=== PATIENT | male | born 1955 | race Caucasian/White ===

== ENCOUNTER 2022-09-03 07:47 | Day surgery (SDC) | payer MEDICARE, OTHER ==
[~2022-09-03] VITALS: Ht 177.8 cm; Wt 96.8 kg
[~2022-09-03 07:47] MED LIST: ACTOS45 MG PO; FLUTICASONE-SA1 EAC3 INH; METFORMIN HCL1000 MG PO; MILK THISTLE500 MG PO; MULTI VITAMIN1 EACH PO; TURMERIC500 M3 PO
--- NOTE | 2022-09-03 09:45 | NUR ---
09/03/22 0945 Kenia Alfredo PT TO PACU SLEEPY BUT WAKES TO VERBAL STIMULI.
--- NOTE | 2022-09-03 11:03 | OR ---
[facility] [address], [place] [address] Signed DATE OF OPERATION: 09/03/2022 SURGEON: Mike Catalan MD PREOPERATIVE DIAGNOSIS: Screening. POSTOPERATIVE DIAGNOSES: 1. 4 mm polyp at 15 cm (rectum). 2. 4 mm polyp in cecum opposite ileocecal valve. 3. 4 mm polyp at 4 cm. 4. Minimal internal hemorrhoids. PROCEDURE: Colonoscopy with hot biopsy. ESTIMATED BLOOD LOSS: None. INDICATIONS: Sierra is a 67-year-old diabetic gentleman, asked to see me for followup colonoscopy. He underwent a screening colonoscopy at age 56 back in 2010 while living in the with [facility]. He remembers upper endoscopy at the same time. He said both were negative. He was told to follow up in 10 years. He has no family history of colon cancer or polyps. He has no lower GI complaints. I had met with Sierra in the office and gave him a pamphlet on colonoscopy. We had reviewed that together in detail. He understands there is risk including, but not limited to gas bloating, crampy abdominal pain, bleeding, perforation requiring surgery, and missed diagnosis. We also reviewed the need for IV conscious sedation. He had expressed understanding and wished to proceed. DESCRIPTION OF PROCEDURE: Sierra was taken into our endoscopy suite and placed in the left lateral decubitus position. He was given a total of 4.5 mg of Versed and 150 mcg of fentanyl to cover the case. A digital rectal exam was performed. No external hemorrhoids. He had good sphincter tone. He has expected induration and swelling to the prostate gland consistent with his age. The adult colonoscope had been introduced and advanced under direct visualization of the camera. It took a little extra sedation in order to get the scope up into the cecum itself. His prep was good. We could easily see the appendiceal orifice and the ileocecal valve. The above-mentioned polyps were easily removed with Electronically Signed By: MIKE CATALAN MD 09/03/22 1103 PATIENT NAME: SIERRA MARKHAM JR OPERATIVE REPORT DATE OF : 57 REPORT #: [id number] PHYSICIAN: MIKE CATALAN MD PCP: ADDIS LESTER MD REPORT IS CONFIDENTIAL AND NOT TO BE RELEASED WITHOUT AUTHORIZATION [facility] [address] [place], [place] [address] Signed the help of hot biopsy forceps. We had taken several pictures throughout for photodocumentation. The scope had been retroflexed in the rectum. He does have small internal hemorrhoid columns. After this, the gas was suctioned out and the colonoscope removed. Sierra tolerated the procedure quite well. RECOMMENDATIONS: I will see Sierra back in my office in 7 to 14 days to review his results. MD ALBA Mays/TASHA /[id number] cc: Mike Vale MD Copies: MIKE CATALAN MD ~ Electronically Signed By: MIKE CATALAN MD 09/03/22 1103 PATIENT NAME: SIERRA MARKHAM JR OPERATIVE REPORT DATE OF : 57 REPORT #: [id number] PHYSICIAN: MIKE CATALAN MD PCP: ADDIS LESTER MD REPORT IS CONFIDENTIAL AND NOT TO BE RELEASED WITHOUT AUTHORIZATION
--- NOTE | 2022-09-05 15:54 | PATH ---
[facility] [address] [place], [place] [address] Signed SPECIMEN(S): A COLON POLYP AT 15 CM SPECIMEN(S): B CECUM POLYP SPECIMEN(S): C COLON POLYP AT 4 CM SPECIMEN SOURCE: A. COLON POLYP AT 15 CM B. CECUM POLYP C. COLON POLYP AT 4 CM CLINICAL HISTORY: Screening colonoscopy. Post-op: Polyps. FINAL PATHOLOGIC DIAGNOSIS: A. Colon polyp at 15 cm: - Hyperplastic polyp (one fragment). B. Cecum polyp: - Serrated polyp/adenoma (one fragment). C. Colon polyp at 4 cm: - Hyperplastic polyp (one fragment). JVR:tung:C2NR MICROSCOPIC EXAMINATION: Histologic sections of all submitted blocks are examined by light microscopy. These findings, together with the gross examination, support the pathologic diagnosis. GROSS DESCRIPTION: Three specimens are received in three containers, labeled "LR." A. The specimen, labeled "LR, 1," and designated on the requisition "colon polypectomy 15 cm," is received in formalin and consists of one horner soft tissue fragment that measures 0.4 cm in greatest dimension. The specimen is entirely submitted in cassette (A1). B. The specimen, labeled "LR, 2," and designated on the requisition "cecum polypectomy," is received in formalin and consists of one horner soft tissue fragment that measures 0.3 cm in greatest dimension. The specimen is entirely submitted in cassette (B1). C. The specimen, labeled "LR, 3," and designated on the requisition "colon polypectomy 4 cm," is received in formalin and consists of one horner-white to horner soft tissue fragment that measures 0.4 cm in greatest dimension. The specimen is entirely submitted in cassette (C1). AI (under the direct supervision of a pathologist) PATIENT NAME: SIERRA MARKHAM JR PATHOLOGY DATE OF : 57 REPORT #: [id number] PHYSICIAN: BRYAN LEE PCP: ADDIS LESTER MD REPORT IS CONFIDENTIAL AND NOT TO BE RELEASED WITHOUT AUTHORIZATION [facility] [address] [place], [place] [address] Signed The Gross Description was prepared using a voice recognition system. The report was reviewed for accuracy; however, sound-alike word errors, addition and/or deletions may occur. If there is any question about this report, please contact Client Services. PERFORMING LABORATORY: The technical component was performed by [facility], [address] [place] [address] (CLIA# [id number]). Professional interpretation was performed by [facility] - [facility], [address] [place] [phone] (CLIA#: [id number]). Diagnostician: Gurwinder Medeiros MD Pathologist Electronically Signed 09/05/2022 Copies: ~ PATIENT NAME: SIERRA MARKHAM JR PATHOLOGY DATE OF : 57 REPORT #: [id number] PHYSICIAN: BRYAN LEE PCP: ADDIS LESTER MD REPORT IS CONFIDENTIAL AND NOT TO BE RELEASED WITHOUT AUTHORIZATION
== END 2022-09-03 10:10 | disposition home or self-care (01) ==
LOC: DS 07:47 → OPS 07:47 → DS 09:00 → OPS 10:10
PROVIDERS: ATTEND Colon & Rectal Surgery
PROC: 0DBP8ZZ Excision of Rectum, Via Natural or Artificial Opening Endoscopic (ICD-10-PCS; 2022-09-03)
PROC: 0DBC8ZZ Excision of Ileocecal Valve, Via Natural or Artificial Opening Endoscopic (ICD-10-PCS; 2022-09-03)
PROC: 0DBH8ZZ Excision of Cecum, Via Natural or Artificial Opening Endoscopic (ICD-10-PCS; principal; 2022-09-03 09:00)
DX: Z12.11 Encounter for screening for malignant neoplasm of colon (principal); K64.8 Other hemorrhoids; D12.0 Benign neoplasm of cecum; E11.9 Type 2 diabetes mellitus without complications; Z79.84 Long term (current) use of oral hypoglycemic drugs; Z88.8 Allergy status to other drugs, medicaments and biological substances
CPT/HCPCS: 99153; G0500; J2250; J3010; J7121

== ENCOUNTER 2025-09-02 11:40 | Emergency (ER) | payer MEDICARE, OTHER ==
[~2025-09-02] VITALS: Ht 177.8 cm; Wt 93.9 kg
[2025-09-02 14:22] VITALS: BP 144/83
== END 2025-09-02 14:22 | disposition home or self-care (01) ==
LOC: ED 11:40
DX: S40.011A Contusion of right shoulder, initial encounter (principal); I10 Essential (primary) hypertension; E11.9 Type 2 diabetes mellitus without complications; Z88.8 Allergy status to other drugs, medicaments and biological substances; Z79.84 Long term (current) use of oral hypoglycemic drugs; Z79.899 Other long term (current) drug therapy; W18.30XA Fall on same level, unspecified, initial encounter; Y92.009 Unspecified place in unspecified non-institutional (private) residence as the place of occurrence of the external cause
CPT/HCPCS: 73030; 99283